=== PATIENT | female | born 1955 | race Caucasian/White ===

== ENCOUNTER → 2016-10-24 | Outpatient (CLI) | payer OTHER ==
--- NOTE | 2016-10-24 11:21 | CPEKG ---
Heart Rate: 73 RR Interval: 822 P-R Interval: 132 QRSD Interval: 82 QT Interval: 376 QTC Interval: 415 P [place]: 64 QRS [place]: -3 T Wave [place]: 45 EKG Severity - NORMAL ECG - EKG Impression: SINUS RHYTHM Electronically Signed By: Óscar Blas 24-Oct-2016 12:22:02
== END ==
LOC: BHFA 10:50
PROVIDERS: ATTEND Otolaryngology
DX: Z01.818 Encounter for other preprocedural examination (principal)